=== PATIENT | female | born 1955 | race Caucasian/White ===

== ENCOUNTER 2017-08-29 15:37 | Day surgery (SDC) | payer OTHER ==
[~2017-08-29] VITALS: Ht 154.9 cm; Wt 73.8 kg
[~2017-08-29 15:37] MED LIST: ASPI-535; BENA10TA; ZOC10
[2017-08-29 16:04] VITALS: Ht 154.9 cm; Wt 73.8 kg
[2017-08-29] MEDS ORDERED: ATEN50TA PO (16:18)
[2017-08-29 16:30] VITALS: BP 168/79; PULSE 78; RESP 16
--- NOTE | 2017-08-29 17:11 | OPPN ---
Date/Time of Note Date/Time of Note DATE: 08/29/17 TIME: 17:10 Operative Report Preoperative Diagnosis Screening colonoscopy Postoperative Diagnosis 2 small sigmoid colon polyps were removed Operation/Procedure Performed Colonoscopy biopsy and polypectomy Surgeon see signature line psychologist research assistant None Anesthesia: moderate sedation Estimated blood loss: none Transfusion Required none Specimen Colon polyps Grafts/Implants none Complications none JN MCNALLY MD Aug 29, 2017 17:11
[2017-08-29] MEDS ORDERED: FENTAnyl 50 MCG/ML VIAL ONE (17:24)
[2017-08-29] MEDS ORDERED: MIDAZOLAM 1 MG/ML 2 ML INJ ONE ×3 (17:24)
[2017-08-29 17:36] VITALS: BP 120/78; PULSE 68; RESP 24
--- NOTE | 2017-08-29 19:32 | GILP ---
DATE OF PROCEDURE: 08/29/2017 NAME OF PROCEDURES: Colonoscopy, biopsy and polypectomy. SURGEON: Jn Gomez MD PREOPERATIVE DIAGNOSIS: Screening colonoscopy. POSTOPERATIVE DIAGNOSES 1. Colonoscopy all the way to the cecum. 2. The patient had 2 sigmoid polyps and one of them was removed using the biopsy forceps and another one with snare and electrocautery. 3. Internal hemorrhoids. INDICATION FOR THE PROCEDURE: Ms. Meg Dumont is a 62-year-old female patient who was scheduled for screening colonoscopy. The procedure and possible complications are well explained to the patient, she understood and conse nted to the procedure. DESCRIPTION OF PROCEDURE: Under the influence of fentanyl and Versed, the colonoscope was carefully introduced in the rectum and under direct vision, it was advanced all the way to the cecum. FINDINGS: The patient had 2 sigmoid colon polyps and one of them was removed using the snare and el ectrocautery and another one with biopsy forceps. She had internal hemorrhoids. She tolerated the procedure very well and there was no complication from the procedures. At the end of the procedures, she was awake with stable vital signs and she was discharged home to the care of her family. IMPRESSION: Please see postoperative diagnosis. PLAN: 1. Await histopathology report. 2. Next screening colonoscopy in 5 years. Dictated By: JN BOJORQUEZ/ROSY Conf#: [id number] DID#: [id number]
== END 2017-08-29 18:05 | disposition home or self-care (01) ==
LOC: GIL 15:37
PROVIDERS: ATTEND Internal Medicine Gastroenterology
DX: Z12.11 Encounter for screening for malignant neoplasm of colon (principal); D12.5 Benign neoplasm of sigmoid colon; K64.4 Residual hemorrhoidal skin tags
CPT/HCPCS: 45380; 88305; J2250; J3010; Z7610